=== PATIENT | female | born 1955 | race Caucasian/White ===

== ENCOUNTER 2025-02-01 06:29 | Emergency (ER) | payer OTHER ==
[2025-02-01] MEDS ORDERED: NA CHLORIDE 0.9% 500 ML ONE (07:12)
[2025-02-01] MEDS ORDERED: hydrOXYzine HCL 25 MG TAB ONE (07:12)
[2025-02-01] MEDS ORDERED: METHYLPREDNISOLONE 125 MG INJ ONE (07:12)
--- NOTE | 2025-02-01 08:11 | EDPHYS ---
Physician Documentation [facility] Name: Porsha Amado Age: 69 yrs Sex: Female : 1955 Arrival Date: 02/01/2025 Time: 06:29 Bed 5 Private MD: ED Physician Steffen Chung HPI: 02/01 07:07 This 69 yrs old Female presents to ER via Ambulatory with complaints of Rash from rn Chemo. pts dr sent her to the Er. 07:07 The patient's rash thought to be caused by medication. The rash is located on the body rn diffusely. Patient reports started second round of chemotherapy for metastatic bladder cancer, started with a fine rash diffusely, oncologist put her on prednisone the rash is not improving. There is no desquamation, no cyanosis, no bulla, no involvement of mucosa. No shortness of breath or nausea or vomiting.. Historical: - Allergies: 06:52 No Known Allergies; al5 - PMHx: 06:52 Hypertensive disorder; Depressive disorder; Bladder Cancer; al5 - PSHx: 06:52 section; partial hysterectomy; al5 - Immunization history:: Adult Immunizations up to date. - Infectious Disease History:: Denies. - Social history:: Smoking status: Patient denies any tobacco usage or history of. - Family history:: not pertinent. - Hospitalizations: : No recent hospitalization is reported. ROS: 07:08 Constitutional: Negative for fever, chills, and weight loss, Eyes: Negative for injury, rn pain, redness, and discharge, Cardiovascular: Negative for chest pain, palpitations, and edema, Respiratory: Negative for shortness of breath, cough, wheezing, and pleuritic chest pain, Abdomen/GI: Negative for abdominal pain, nausea, vomiting, diarrhea, and constipation, MS/Extremity: Negative for injury and deformity, Skin: Positive for rash and itching Neuro: Negative for headache, weakness, numbness, tingling, and seizure, Exam: 07:08 Constitutional: This is a well developed, well nourished patient who is awake, alert, rn and in no acute distress. Head/Face: Normocephalic, atraumatic. ENT: No oral mucosa Cardiovascular: Regular rate and rhythm. No pulse deficits. Respiratory: No increased work of breathing, no retractions or nasal flaring. Skin: Diffuse fine erythematous rash. No petechiae, no bullae, no involvement of oral mucosa, no desquamation Vital Signs: 06:49 BP 124 / 78; Pulse 91; Resp 16; Temp 98.1; Pulse Ox 100% on R/A; Weight 83.91 kg; al5 Height 5 ft. 4 in. ; 07:05 BP 140 / 75; Pulse 86; Resp 16 S; Pulse Ox 98% on R/A; aa5 08:23 BP 126 / 74; Pulse 75; Resp 16 S; Pulse Ox 98% on R/A; aa5 08:56 BP 119 / 73; Pulse 71; Resp 16; Pulse Ox 97% on R/A; iw 06:49 Body Mass Index 31.75 (83.91 kg, 162.56 cm) al5 MDM: 06:56 Medical Screening Exam initiated rn 08:08 Differential diagnosis: allergic reaction, Medication reaction. Data reviewed: vital rn signs, nurses notes, and as a result, I will discharge patient. Counseling: I had a detailed discussion with the patient and/or guardian regarding the historical points, exam findings, and any diagnostic results supporting the discharge/admit diagnosis, the need for outpatient follow up, to return to the emergency department if symptoms worsen or persist or if there are any questions or concerns that arise at home. Special discussion: I discussed with the patient/guardian in detail that at this point there is no indication for admission to the hospital. It is understood, however, that if the symptoms persist or worsen the patient needs to return immediately for re-evaluation. Based on the history and exam findings, there is no indication for further emergent testing or inpatient evaluation. I discussed with the patient/guardian the need to see the brush clearer surveying/oncologist for further evaluation of the symptoms. 08:08 Response to treatment: the patient's symptoms have mildly improved after treatment, and rn as a result, I will discharge patient. 02/01 07:06 Order name: IV Start; Complete Time: 07:27 rn Administered Medications: 07:19 Drug: hydrOXYzine PO 50 mg PO once Route: PO; aa5 08:23 Follow up: Response: No adverse reaction aa5 07:20 Drug: MethylPrednisoLONE IVP 125 mg IVP once Route: IVP; Site: left antecubital; aa5 07:25 Follow up: Response: No adverse reaction aa5 07:20 Drug: NS 0.9% IV 500 ml 500 ml IV at 1 bolus once; to be given as a bolus over 30 aa5 minutes Volume: 500 ml; Route: IV; Rate: 1 bolus; Site: left antecubital; 07:50 Follow up: IV Status: Completed infusion; IV Intake: 500ml aa5 08:28 Drug: diphenhydrAMINE IVP 25 mg IVP once Route: IVP; Site: left antecubital; aa5 08:34 Follow up: Response: No adverse reaction aa5 Disposition Summary: 02/01/25 08:11 Discharge Ordered Notes: Location: Home rn Problem: new rn Symptoms: have improved rn Condition: Stable rn Diagnosis - Rash and other nonspecific skin eruption rn Followup: rn - With: Private Physician - When: As needed - Reason: Recheck today's complaints, Re-evaluation by your physician Discharge Instructions: - Discharge Summary Sheet rn - Rash, Adult rn Forms: - Medication Reconciliation Form rn - Antibiotic analytics intern - Prescription Opioid Use rn - Patient Portal Instructions rn - Leadership Thank You Letter rn Prescriptions: - Hydroxyzine HCl 50 mg Oral Tablet - take 1 tablet ORAL route every 8 hours As needed; 20 tablet; Refills: 0, rn Product Selection Permitted Signatures: Steffen Chung MD MD rn Calderon, Audri RN RN aa5 Shirley Manriquez RN RN al5
--- NOTE | 2025-02-01 08:11 | ER ---
Nurse's Notes [facility] Name: Porsha Amado Age: 69 yrs Sex: Female : 1955 Arrival Date: 02/01/2025 Time: 06:29 Bed 5 Private MD: Diagnosis: Rash and other nonspecific skin eruption Presentation: 02/01 06:49 Chief complaint: Patient states: c/o itchy rash from her chemo that started on her neck al5 and spread to her chest, torso, and legs for the past week. patient was prescribed prednisone and has been also taking benadryl with no relief. denies any other symptoms. Coronavirus screen: At this time, the client does not indicate any symptoms associated with coronavirus-19. Ebola Screen: No symptoms or risks identified at this time. Initial Sepsis Screen: Does the patient meet any 2 criteria? HR > 90 bpm. No. Patient's initial sepsis screen is negative. Does the patient have a suspected source of infection? No. Patient's initial sepsis screen is negative. Risk Assessment: Do you want to hurt yourself or someone else? Patient reports no desire to harm self or others. Onset of symptoms was January 25, 2025. 06:49 Method Of Arrival: Ambulatory al5 06:49 Acuity: ADRIÁN 3 al5 Triage Assessment: 06:52 General: Appears in no apparent distress. comfortable, Behavior is calm, cooperative. al5 Pain: Denies pain. EENT: No signs and/or symptoms were reported regarding the EENT system. Neuro: Level of Consciousness is awake, alert, obeys commands, Oriented to person, place, time, situation. Cardiovascular: Capillary refill < 3 seconds Patient's skin is warm and dry. Respiratory: Airway is patent Respiratory effort is even, unlabored, Respiratory pattern is regular, symmetrical. GI: No signs and/or symptoms were reported involving the gastrointestinal system. : No signs and/or symptoms were reported regarding the genitourinary system. Derm: Rash noted that is itchy, red, on chest, abdomen, right leg, left leg and neck. Musculoskeletal: Circulation, motion, and sensation intact. Range of motion: intact in all extremities. Historical: - Allergies: 06:52 No Known Allergies; al5 - PMHx: 06:52 Hypertensive disorder; Depressive disorder; Bladder Cancer; al5 - PSHx: 06:52 section; partial hysterectomy; al5 - Immunization history:: Adult Immunizations up to date. - Infectious Disease History:: Denies. - Social history:: Smoking status: Patient denies any tobacco usage or history of. - Family history:: not pertinent. - Hospitalizations: : No recent hospitalization is reported. Screenin:54 [facility] ED Fall Risk Assessment (Adult) History of falling in the last 3 months, al5 including since admission No falls in past 3 months (0 pts) Confusion or Disorientation No (0 pts) Intoxicated or Sedated No (0 pts) Impaired Gait No (0 pts) Mobility Assist Device Used No (0 pt) Altered Elimination No (0 pt) Score/Fall Risk Level 0 - 2 = Low Risk Oriented to surroundings, Maintained a safe environment, Hourly rounding (assess needs \T\ fall precautionary measures) done. Abuse screen: Denies threats or abuse. Denies injuries from another. Nutritional screening: No deficits noted. Tuberculosis screening: No symptoms or risk factors identified. Assessment: 06:54 Reassessment: see triage assessment. al5 07:10 General: Appears comfortable, Behavior is calm, cooperative. Pain: Denies pain. Neuro: aa5 Level of Consciousness is awake, alert, obeys commands, Oriented to person, place, time, situation. Cardiovascular: Patient's skin is warm and dry. Respiratory: Airway is patent Respiratory effort is even, unlabored, Respiratory pattern is regular, symmetrical. GI: Abdomen is round. : No signs and/or symptoms were reported regarding the genitourinary system. EENT: No signs and/or symptoms were reported regarding the EENT system. Derm: Skin is pink, warm \T\ dry. Rash noted that is itchy, red, raised, and diffuse. Musculoskeletal: Range of motion: intact in all extremities. 08:23 Reassessment: Patient is alert, oriented x 3, equal unlabored respirations, skin aa5 warm/dry/pink. Patient states symptoms have not improved. Pt reports itching has not improved, MD was notified. . Vital Signs: 06:49 BP 124 / 78; Pulse 91; Resp 16; Temp 98.1; Pulse Ox 100% on R/A; Weight 83.91 kg; al5 Height 5 ft. 4 in. ; 07:05 BP 140 / 75; Pulse 86; Resp 16 S; Pulse Ox 98% on R/A; aa5 08:23 BP 126 / 74; Pulse 75; Resp 16 S; Pulse Ox 98% on R/A; aa5 08:56 BP 119 / 73; Pulse 71; Resp 16; Pulse Ox 97% on R/A; iw 06:49 Body Mass Index 31.75 (83.91 kg, 162.56 cm) al5 ED Course: 06:35 Patient arrived in ED. gm2 06:52 Triage completed. al5 06:52 Arm band placed on right wrist. Patient placed in the treatment room, in view of staff al5 members, on pulse oximetry. 06:54 Patient has correct armband on for positive identification. Bed in low position. Call al5 light in reach. Side rails up X 1. 06:54 No provider procedures requiring assistance completed. al5 06:56 Steffen Chung MD is Attending Physician. rn 07:10 Felicia Mcadams RN is Primary Nurse. aa5 07:10 Patient has correct armband on for positive identification. Bed in low position. Call aa5 light in reach. Side rails up X 1. Adult w/ patient. Provided Education on: use of call light . 07:20 Inserted saline lock: 22 gauge in left antecubital area, using aseptic technique. aa5 Flushed with 10 mL NS. 08:57 IV discontinued, intact, bleeding controlled, No redness/swelling at site. Pressure iw dressing applied. Administered Medications: 07:19 Drug: hydrOXYzine PO 50 mg PO once Route: PO; aa5 08:23 Follow up: Response: No adverse reaction aa5 07:20 Drug: MethylPrednisoLONE IVP 125 mg IVP once Route: IVP; Site: left antecubital; aa5 07:25 Follow up: Response: No adverse reaction aa5 07:20 Drug: NS 0.9% IV 500 ml 500 ml IV at 1 bolus once; to be given as a bolus over 30 aa5 minutes Volume: 500 ml; Route: IV; Rate: 1 bolus; Site: left antecubital; 07:50 Follow up: IV Status: Completed infusion; IV Intake: 500ml aa5 08:28 Drug: diphenhydrAMINE IVP 25 mg IVP once Route: IVP; Site: left antecubital; aa5 08:34 Follow up: Response: No adverse reaction aa5 Medication: 06:54 VIS not applicable for this client. al5 Intake: 07:50 IV: 500ml; Total: 500ml. aa5 Outcome: 08:11 Discharge ordered by . rn 08:57 Discharged to home ambulatory, with family, iw 08:57 Condition: good 08:57 Discharge instructions given to patient, family, Instructed on discharge instructions, follow up and referral plans. medication usage, Demonstrated understanding of instructions, follow-up care, medications, Prescriptions given X 1, 08:57 Patient left the ED. iw Signatures: Elvira Lopez RN RN iw Steffen Chung MD MD rn Calderon, Audri, RN RN [id number] Penny Marino [employer] Shirley Manriquez RN RN al5 Corrections: (The following items were deleted from the chart) 06:55 06:54 Provided Education on: plan of care. al5 al5
[2025-02-01] MEDS ORDERED: DIPHENHYDRAMINE 50 MG/ML VIAL ONE (08:22)
[2025-02-01 09:02] VITALS: TEMP 98.1
[2025-02-01 09:07] VITALS: BP 119/73; O2SAT 97
== END 2025-02-01 08:57 | disposition home or self-care (01) ==
LOC: ER 06:29
DX: R21 Rash and other nonspecific skin eruption (principal); C67.9 Malignant neoplasm of bladder, unspecified; I10 Essential (primary) hypertension; F32.A Depression, unspecified; Z92.21 Personal history of antineoplastic chemotherapy
CPT/HCPCS: 96375; 96374; 99284; J1200; J2919; J7040